=== PATIENT | male | born 1955 | race African-American/Black ===

== ENCOUNTER → 2016-10-15 | Outpatient (CLI) | payer MEDICAID ==
[~2016-10-15] MED LIST: NO MEDICATIONS
--- NOTE | ~2016-10-15 | CR63 ---
[facility] A Service of [facility] & [facility] RADIOLOGY TEXT RESULTS PATIENT: GATITO COLLINS JR LOCATION: [facility] : 53 UNIT #: [id number] AGE: [address]: George Cheema MD SEX: M ORDER DR: [id number] [facility] [address] [place], [place] [address] [id number] O MR#: [id number] Acc #: [id number] NAME: GATITO COLLINS : 1955 SEX: M STUDY DATE/TIME: 10/15/2016 12:27 UNIT: [facility] ROOM: STUDY DESCRIPTION: CR Chest 2 View Attending Physician: George Cheema M.D. Ordering Physician: George Cheema M.D. Primary Care Physician: Fozia Romero Aprn MEDICAL IMAGING REPORT This report is preliminary unless electronic signature is present EXAM Chest, 10/15/2016, [facility]. HISTORY 61-year-old male patient preop left knee surgery, internal derangement. The short of air with activity. Former smoker. COMPARISON Chest none. FINDINGS Two-view chest demonstrates borderline cardiac enlargement. Hilar structures and mediastinal contours are otherwise preserved. Bilateral lungs are expanded and clear. IMPRESSION Borderline cardiac enlargement. No acute chest finding. Dictated by... Amish Alvares M.D. THIS IS AN ELECTRONICALLY VERIFIED REPORT Amish Alvares M.D. at 10/15/2016 2:56 PM QUINTON/bulmaro TD: 10/15/2016 14:25 JOB #: [id number] MEDICAL IMAGING REPORT Page 1 of 1 COPY
--- NOTE | ~2016-10-15 | EKG ---
PATIENT: GATITO COLLINS UNIT #: [id number] Ventricular Rate: 52 BPM Atrial Rate: 52 BPM P-R Interval: 154 ms QRS Duration: 88 ms Q-T Interval: 422 ms QTC Calculation(Bezet): 392 ms P [place]: 43 degrees Calculated R [place]: -14 degrees Calculated T [place]: 16 degrees Diagnosis Line: Sinus bradycardia Diagnosis Line: Otherwise normal ECG Diagnosis Line: No previous ECGs available Diagnosis Line: Confirmed by LEROY BALTAZAR MD ([id number]) on 10/17/2016 Diagnosis Line: 8:17:51 AM INTERPRETING MD: DEALNEY RONDON
[2016-10-15 11:34] LABS: HEMOGLOBIN 13.2 gm/dL (13.0-16.0); MEAN CELL VOLUME 84.2 FL (83-96); MEAN CORPUSCULAR HEMOGLOBIN 27.7 PG (28-34); MEAN PLATELET VOLUME 7.7 FL (6.5-11.5); RED BLOOD COUNT 4.75 X10e (3.90-5.60); RED CELL DISTRIBUTION WIDTH 13.1 % (11.0-15.5); WHITE BLOOD COUNT 5.6 X10e3 (4.0-10.5)
[2016-10-15 11:35] LABS: URINE APPEARANCE CLEAR; URINE BILIRUBIN NEG (NEG); URINE BLOOD 3+ (NEG); URINE COLOR YELLOW; URINE GLUCOSE NORM (NORM); URINE KETONE NEG (NEG); URINE LEUKOCYTE ESTERASE NEG (NEG); URINE NITRATE NEG (NEG); URINE PROTEIN NEG (NEG); URINE SPECIFIC GRAVITY 1.015 (1.003-1.035); URINE UROBILINOGEN NORM (NORM)
[2016-10-15 11:36] LABS: URINE SOURCE CLEAN CATCH
[2016-10-15 11:37] LABS: U HYALINE CASTS AUWI 0-2 /[LPF]; URINE BACTERIA AUWI NEG (NEGATIVE); URINE SQUAMOUS EPITHELIAL CELL NONE SEEN /[HPF]; UWBCS1 AUWI 0-2 (0-5)
== END | disposition home or self-care (01) ==
LOC: CAMB 10:55
PROVIDERS: Orthopaedic Surgery
DX: Z01.818 Encounter for other preprocedural examination (principal); M23.92 Unspecified internal derangement of left knee; I51.7 Cardiomegaly
CPT/HCPCS: 36415; 71020; 81003; 85027; 93005

== ENCOUNTER → 2016-10-26 | Outpatient (CLI) | payer MEDICAID ==
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
== END | disposition home or self-care (01) ==
LOC: CMRI 08:00
DX: M54.5 Low back pain (principal); M47.896 Other spondylosis, lumbar region; M51.46 Schmorl's nodes, lumbar region
CPT/HCPCS: 72148

== ENCOUNTER → 2016-10-29 | Day surgery (SDC) | payer MEDICAID ==
--- NOTE | ~2016-10-29 | OR ---
Unit #: [id number] #: [id number] Patient: GATITO COLLINS JR [id number] [address] [address] [id number] O MR#: [id number] NAME: GATITO COLLINS JR ROOM: Date of Procedure: 10/29/2016 Admission Date: 10/29/2016 Surgeon: George Cheema M.D. : 1955 Attending Physician: George Cheema M.D. Primary Care Physician: Fozia Romero PROCEDURE OPERATIVE NOTE The patient was seen and evaluated in preop and the correct left leg for the surgical procedure was confirmed verbally and marked by the attending surgeon. Questioned the patient on his home exercise program. He related he was doing 300 leg lifts a day some days but not seven days a week. I asked him if he got a written thing instructing him to do 500 a day. He said he did. At this juncture, I stressed to him how very important it was for him to take part in his own recovery and speed up his recovery to get the maximum benefit and He said he would do this. PREOPERATIVE DIAGNOSIS Left knee: 1. Torn medical meniscus on MRI. 2. Status post fracture lateral tibial plateau, healed. 3. Synovitis of the knee. 4. 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 POSTOPERATIVE DIAGNOSIS Left knee: 1. Healed fracture lateral tibial plateau with grade 2 to 2+ degenerative arthritis at the fracture line as well as posterior to that just anterior to the posterior one third of the lateral meniscus. 2. Patient had synovitis medially at the joint line. 3. Synovitis laterally at the joint line. 4. Patient had a loose body approximately 10 x 14 x 10 and multiple loose bodies of smaller proportions. OPERATION PERFORMED Left knee diagnostic and operative arthroscopy with: 1. Debridement arthroplasty lateral tibial plateau. 2. Synovectomy laterally. 3. Synovectomy medially. 4. Removal of loose body 10 x 14 x 10. 5. Joint lavage. 6. Injection for postop hemostasis, analgesia and inflammation. SURGEON George Cheema M.D. Ariel Unit #: [id number] #: [id number] Patient: GATITO COLLINS JR ANESTHESIA General endotracheal. HEMOSTASIS 250 mmHg for less than one hour. TECHNIQUE Under satisfactory general anesthesia, patient received 2 g of Kefzol prior to starting the procedure. He had his leg prepped in preop followed by meticulous prep and draping by the surgical team in the OR followed by changing of gloves by the operative team which double gloved. Following this, a standard three portal entrance was utilized. The knee was systematically inspected. Upon entering the medial compartment of the knee very close scrutiny including probing both the superior and inferior surface of the medial meniscus at the area of the reported medial meniscal tear and there was no tear. This very close scrutiny and probing continued on to the posterior horn on the superior and inferior surface. Again, there was no tear. The patient had no significant degenerative changes in the medial compartment of the knee in both the femur or the tibia. However, he did have some inflamed, angry hypertrophic synovium corresponding to one of his areas of major preoperative clinical tenderness and this was pathologic. At this juncture, the Mitek bipolar unit was utilized for synovectomy at the medial compartment of the knee for this pathological tissue and not for visualization. Attention was turned to the intracondylar notch. The anterior cruciate was normal. Normal tautness on (1) maneuver. Normal vascular pattern, normal probing. In the lateral compartment, a 10 x 14 x 10 mm loose body was identified and after some difficulty in chasing it around, it was removed. Attention was then turned to the tibial plateau where the longitudinal mid weight bearing tear of fracture line with frayed articular surface, although at the same level on each side of the fracture line with no stepoff, was identified. Posterior to that was grade 1+ fraying just anterior rule to the posterior one third of the lateral meniscus and mechanical debridement arthroplasty of this fracture line with the loose margins of it as well as the area just anterior to the posterior one third of the lateral meniscus was then done with the power shaver and vacuuming. The synovium laterally was very red, angry and hypertrophic and pathologic and then again, for its pathological condition and not for visualization, a synovectomy in lateral was also done with the Mitek unit. The scope was then placed superior laterally, the patella trochlear groove was remarkably good. There was no additional loose body seen throughout the procedure. The joint was power vacuumed as well as lavaged with probably 5000 to 6000 mL of fluid because of all the small particles coming off of the fracture line of the tibial plateau most likely. The joint was then closed with subcuticular sutures anteriorly and a purse-string superiorly. An ejection of 40 mL of 0.25% Marcaine with epi, 1 mL dexamethasone was done. The patient tolerated this well and sent to recovery room in satisfactory condition. Written home instructions had been stressed to the patient prior to his surgery. Unit #: [id number] #: [id number] Patient: GIANNIELICEO GATITO CEBALLOS Dictated by... Guera Rubio/amer[place] TD: 10/29/2016 12:40 JOB #: [id number] PROCEDURE OPERATIVE NOTE Page 1 of 1 X George Cheema MD PROCEDURE OPERATIVE NOTE
[2016-10-29 08:23] LABS: URINE SOURCE CLEAN CATCH
[2016-10-29 08:30] LABS: URINE APPEARANCE CLEAR; URINE BILIRUBIN NEG (NEG); URINE BLOOD 2+ (NEG); URINE COLOR YELLOW; URINE GLUCOSE NEG (NEG); URINE KETONE TRACE (NEG); URINE LEUKOCYTE ESTERASE NEG (NEG); URINE NITRATE NEG (NEG); URINE PH 5.5 (5-8); URINE PROTEIN NEG (NEG); URINE SPECIFIC GRAVITY 1.026 (1.003-1.035)
[2016-10-29 08:32] LABS: URINE BACTERIA AUWI NEG (NEGATIVE); URINE SQUAMOUS EPITHELIAL CELL NONE SEEN /[HPF]; UWBCS1 AUWI 0-2 (0-5)
[2016-10-29 08:33] LABS: CULTURE INDICATED? NO
== END | disposition home or self-care (01) ==
LOC: CSUR 10-22 10:15
PROVIDERS: Orthopaedic Surgery
DX: M23.252 Derangement of posterior horn of lateral meniscus due to old tear or injury, left knee (principal); M65.9 Synovitis and tenosynovitis, unspecified; M17.12 Unilateral primary osteoarthritis, left knee
CPT/HCPCS: 81003; J0690; J1100; J2250; J2405; J3010